=== PATIENT | female | born 1980 | race Caucasian/White ===

== ENCOUNTER → 2017-03-16 | Outpatient (CLI) | payer BC ==
[~2017-03-16] MED LIST: BCPILLS PO
== END | disposition home or self-care (01) ==
LOC: C.PAPS 13:25
PROVIDERS: ATTEND Obstetrics & Gynecology
DX: Z01.419 Encounter for gynecological examination (general) (routine) without abnormal findings (principal)

== ENCOUNTER 2017-09-12 22:32 | Emergency (ER) | payer BC ==
[~2017-09-12] VITALS: Ht 177.8 cm; Wt 78.7 kg
[2017-09-12 22:37] VITALS: TEMP 36.4; Ht 177.8 cm; Wt 78.7 kg
[2017-09-12] MEDS ORDERED: KETOROLAC TROMETHAMINE 30 MG/ML VIAL IV STA (23:38)
[2017-09-12] MEDS ORDERED: DiphenhydrAMINE HCL 50 MG/ML VIAL IV STA (23:38)
[2017-09-12] MEDS ORDERED: METOCLOPRAMIDE HCL INJ 5 MG/ML 2 ML VIAL IV STA (23:38)
[2017-09-12] MEDS ORDERED: BCPILLS PO (23:43)
[2017-09-13 00:30] VITALS: BP 120/74; PULSE 71; O2SAT 98
--- NOTE | 2017-09-13 06:59 | EMERGENCY ROOM VISIT NOTE ---
History First contact with patient: 23:22 Chief Complaint: HEADACHE Stated Complaint: MIGRAINE,VOMITING,NAUSEA History of Present Illness The patient is a 37 year old female who presents to the Emergency Room with complaints of nausea, vomiting and migraine for the past day. Patient just found out this morning that her dog has cancer. She started to cry and this triggered her migraine. Patient is new to the area. She has been seen multiple times the past for migraines. She is has a headache as throbbing, ranging in severity 7 attending at the frontal region similar to prior. Patient denies sudden onset headache, fever, chills, neck stiffness, weakness, vision problems, cold symptoms, chest pain, dyspnea. Review of Systems See HPI for pertinent positives & negatives. A total of 10 systems reviewed and were otherwise negative. Past Medical/Surgical History Migraine Social History Smoking Status: Never Smoker Drug Use: none Marital Status: Housing Status: lives with family Occupation Status: employed Current/Historical Medications Scheduled Control Pills ( Control Pills), 1 TAB PO DAILY Physical Exam Vital Signs Date Time Temp Pulse Resp B/P (MAP) Pulse Ox O2 Delivery O2 Flow Rate FiO2 09/13/17 00:30 71 16 120/74 98 Room Air 09/12/17 22:37 36.4 98 18 129/86 98 Room Air Physical Exam VITALS: Vitals are noted on the nurse's note and reviewed by myself. Vital signs stable. GENERAL: Pleasant female, in no acute distress, nondiaphoretic, well-developed well-nourished. SKIN: The skin was without rashes, erythema, edema, or bruising. There is no tenting of the skin. Capillary reflex less than 2 seconds. HEAD: Normocephalic atraumatic. EARS: External auditory canals clear, tympanic membranes pearly adams without erythema or effusion bilaterally. EYES: Pupils equal round and reactive to light and accommodation. Conjunctivae without injection, sclerae without icterus. Extraocular movements intact. NOSE: Patent, turbinates without inflammation or discharge. No sinus tenderness. MOUTH: Mucous membranes moist. Pharynx without erythema or exudate. Uvula midline. Airway patent. Tongue does not deviate. NECK: Supple without nuchal rigidity. No lymphadenopathy. No thyromegaly. Cervical spine is nontender. No JVD. HEART: Regular rate and rhythm without murmurs gallops or rubs. LUNGS: Clear to auscultation bilaterally without wheezes, rales or rhonchi. No dullness to percussion. No retractions or accessory muscle use. ABDOMEN: Positive bowel sounds x 4. Normal tympanic percussion. Soft, nontender, without masses or organomegaly. Velasquez sign negative. No guarding or rebound tenderness. MUSCULOSKELETAL: No muscle atrophy, erythema, or edema noted. NEURO: Patient was alert and oriented to person place and time. Normal sensation to light and sharp touch. No focal neurological deficits. Medical Decision & Procedures Medications Administered Medications (Trade) Dose Ordered Sig/Bertha Route Start Time Stop Time Status Last Admin Dose Admin Ketorolac Tromethamine (Toradol Inj) 30 mg NOW STAT IV 09/12/17 23:38 09/12/17 23:39 DC 09/12/17 23:52 30 MG Metoclopramide HCl (Reglan Inj) 10 mg NOW STAT IV 09/12/17 23:38 09/12/17 23:39 DC 09/12/17 23:51 10 MG Diphenhydramine HCl (Benadryl Inj) 25 mg NOW STAT IV 09/12/17 23:38 09/12/17 23:39 DC 09/12/17 23:51 25 MG ED Course Prior records/ancillary studies reviewed. Additional history obtained from family. Triage Nursing notes reviewed. The patient's history was concerning for headache. Differential diagnosis: Etiologies such as migraine headache, meningitis, sinusitis, CO exposure, ICH, SAH, infection, tumor, headache, sinus thrombosis, arterial dissection, as well as others were entertained. Physical examination findings: As above. Non-focal. ER treatment provided: Toradol, Reglan, Benadryl On reassessment the patient felt better. Diagnostics interpreted by me: Deferred This appears to be consistent with migraine. Patient was neurovascular and neurologically intact. She is well-appearing. She no signs of meningitis. She felt much better after being medicated as above. She is advised follow-up family care in a few days or here in the ER sooner for headache, fevers, worsening signs or symptoms or as needed. By the evaluation outlined above emergent etiologies such as meningitis, sinusitis, CO exposure, ICH, SAH, infection, temporal arteritis, tumor, sinus thrombosis, arterial dissection, as well as others were deemed relatively unlikely. The pt informed about the findings as listed above. All questions were answered and pleased with the treatment. Return instructions were outlined and the patient was discharged in stable condition. Referral: The patient was referred back to their primary care physician for follow-up in 2 to 3 days for a recheck of the current condition. Medical Decision As above Head Trauma GCS Score: 15 Medication Reconcilliation Current Medication List: was personally reviewed by me Blood Pressure Screening Patient's blood pressure: Normal blood pressure Impression Primary Impression: Migraine Departure Information Dispostion Home / Self-Care Condition GOOD Forms HOME CARE DOCUMENTATION FORM, Work Instructions, Return To Work: 1 day IMPORTANT VISIT INFORMATION Patient Instructions Headaches Migraine and Tension, My [facility] Additional Instructions DO NOT drive, drink alcohol, operate machinery, or perform dangerous activities today. You were given medications in the ER that can affect your ability to safely function or operate a vehicle. Rest today in a quiet, peaceful, dark environment and get a full 8-10 hrs of sleep tonight. Avoid loud noises, smoke/smoking, alcohol, bright lights, stress, or physical exertion today to minimize the chance the headache may return. Continue current medications. Ibuprofen(Motrin, Advil) may be used for fever or pain. Use 600mg every six hours as needed. Take with food. Avoid using more than 2400mg in a 24 hour period. Do not use 2400mg per day for more than three consecutive days without physician direction. Prolonged inappropriate use can lead to stomach upset or ulcers. (AND/OR) Acetaminophen(Tylenol) may be used for fever or pain. Use 1000mg every six hours as needed. Avoid using more than 3000mg in a 24 hour period. Return to the ER for passing out, worsening headache, vision problems, neck stiffness/pain, fevers, vomiting, worsening of your condition, or as needed. Follow up with your primary physician and/or a neurologist in 2-3 days for a recheck of your current condition. Work Instructions Return To Work: 1 day Problem Qualifiers Primary Impression: Migraine Migraine type: without aura Status migrainosus presence: without status migrainosus Intractability: not intractable Qualified Codes: G43.009 - Migraine without aura, not intractable, without status migrainosus
== END 2017-09-13 01:00 | disposition home or self-care (01) ==
LOC: C.EDB 22:34 → C.EDA 09-13 01:00
DX: G43.009 Migraine without aura, not intractable, without status migrainosus (principal)

== ENCOUNTER → 2017-09-28 | Outpatient (CLI) | payer BC ==
--- NOTE | 2017-09-28 15:33 | MAMMOGRAPHY REPORT ---
BILATERAL DIGITAL DIAGNOSTIC MAMMOGRAM TOMOSYNTHESIS WITH CAD AND TARGETED LEFT ULTRASOUND: 7 CLINICAL HISTORY: The patient reports that her provider felt a palpable lump in the left breast durin g a routine clinical exam. The patient also reports that she has intermittent pain in this region. TECHNIQUE: Breast tomosynthesis in addition to standard 2D mammography was performed. Current study was also evaluated with a Computer Aided Detection (CAD) system. Bilateral CC and MLO 2-D and tomosy nthesis images were obtained. COMPARISON: No prior exams were available for comparison. BREAST COMPOSITION: The tissue of both breasts is extremely dense, which lowers the sensitivity of m ammography. FINDINGS: A triangle marker mcleod the site of the palpable lump in the left upper outer quadrant. Th ere are no suspicious masses, calcifications, or areas of architectural distortion noted in either br east. Targeted ultrasound was performed of the area of the palpable finding pointed out by the patient, in the left breast at 1:00, centered around 8 cm from the nipple. Sonographically normal tissue is seen in this region, without evidence of a mass or other suspicious sonographic abnormality. A ridge of normal-appearing fibroglandular tissue is seen in this region, which may account for the palpable fin ding. IMPRESSION: ACR BI-RADS CATEGORY 2: BENIGN, TARGETED ULTRASOUND ACR BI-RADS CATEGORY 2: BENIGN No suspicious mammographic or sonographic abnormality at the site of the palpable left upper outer qu adrant lump pointed out by the patient. There is no mammographic or targeted sonographic evidence of malignancy. Recommend clinical follow-up for the left breast lump and pain; any decision to biopsy should be based on clinical grounds. Also recommend routine bilateral screening mammograms starting at the age of 40 unless otherwise clinically indicated. The patient has been verbally notified of the results. Approximately 10% of breast cancers are not detected with mammography. A negative mammographic report should not delay biopsy if a clinically suggestive mass is present. Charleen Reed M.D. /:09/28/2017 10:43:53 Deaf Interpreter: Fatimah Juárez, [facility] letter sent: Normal 1/2 BI-RADS Code: ACR BI-RADS Category 2: Benign Ultrasound BI-RADS: ACR BI-RADS Category 2: Benign
== END | disposition home or self-care (01) ==
LOC: C.MAMM 10:05
PROVIDERS: ATTEND Obstetrics & Gynecology
DX: N63.21 Unspecified lump in the left breast, upper outer quadrant (principal)

== ENCOUNTER 2017-10-17 10:17 | Emergency (ER) | payer BC, OTHER ==
[~2017-10-17] VITALS: Ht 180.3 cm; Wt 84.0 kg
[2017-10-17 10:24] VITALS: TEMP 36.9; Ht 180.3 cm; Wt 84.0 kg
[2017-10-17] MEDS ORDERED: KETOROLAC TROMETHAMINE 30 MG/ML VIAL IV STA (10:57)
[2017-10-17] MEDS ORDERED: ONDANSETRON INJ 2 MG/ML 2 ML VIAL IV STA (10:57)
[2017-10-17] MEDS ORDERED: SODIUM CHLORIDE 0.9% 1000ML 1,000 ML IV STA (10:57)
[2017-10-17] MEDS ORDERED: CYAN100073 PO (10:59)
[2017-10-17] MEDS ORDERED: RIZA5TAB10 PO (10:59)
[2017-10-17] MEDS ORDERED: ASPI-391 PO (10:59)
[2017-10-17] MEDS ORDERED: ONDA4TAB46 PO (10:59)
[2017-10-17] MEDS ORDERED: MAGN400T6 PO (10:59)
[2017-10-17] MEDS ORDERED: MULT-506 PO (10:59)
[2017-10-17] MEDS ORDERED: DROS1TAB24 PO (10:59)
[2017-10-17 11:18] LABS: HEMATOCRIT 44.7 % (37-47); HEMOGLOBIN 16.1 g/dL (12.0-16.0); MEAN CELL VOLUME 83.7 fL (80-100); MEAN CORPUSCULAR HEMOGLOBIN 30.1 pg (25-34); MEAN PLATELET VOLUME 10.5 fL (7.4-10.4); PLATELET COUNT 145 K/uL (130-400); RED CELL DISTRIBUTION WIDTH CV 12.6 % (11.5-14.5); RED CELL DISTRIBUTION WIDTH SD 38.1 fL (36.4-46.3); WHITE BLOOD COUNT 7.19 K/uL (4.8-10.8)
[2017-10-17 11:38] LABS: CALCIUM 8.6 mg/dl (8.5-10.1); CREATININE 0.83 mg/dl (0.60-1.20); POTASSIUM 4.1 mmol/L (3.5-5.1)
[2017-10-17 12:18] VITALS: BP 113/63; PULSE 71; O2SAT 99
--- NOTE | 2017-10-17 12:30 | EMERGENCY ROOM VISIT NOTE ---
ED Visit Note First contact with patient: 10:30 CHIEF COMPLAINT: Severe headache since last evening HISTORY OF PRESENT ILLNESS: Patient is a 37-year-old white female who presents to the emergency department accompanied by her for evaluation of a migraine headache that started last evening. Patient states that she had a mild headache 2 days ago which was alleviated by Maxalt. She does also report having several episodes of diarrhea that day. Yesterday during the day she was completely asymptomatic and felt well. She notes that yesterday evening around 9:00 after eating dinner, she developed a generalized, throbbing headache. She took Excedrin initially and went to bed. The headache persisted through the evening, woke her up a couple of times. She did take ibuprofen at one point, and at 4:00 this morning she took Maxalt 2 and Zofran. She states that she was able to go back to sleep slightly, but when she woke up for the day, the headache persisted, she became more nauseous and she actually began vomiting. She was seen at a [facility] and referred to the emergency department. She does note now that the headache has lessened and she thinks that that Maxalt may have helped slightly, but she still is nauseous. She describes a dull, generalized headache, with associated photophobia. She does state that this is very similar to her typical migraine phenomenon, which she has a long-standing history of. She has not seen neurology for some time, but did have a full neurologic workup when she was in [place]. She denies any fever, chills, neck pain or stiffness or recent upper respiratory or flulike illnesses. No difficulty with balance, speech or coordination, no weakness or numbness of the extremities. REVIEW OF SYSTEMS: Review of systems as per HPI. All other systems reviewed were negative. 10 systems reviewed. PMH: Electronic medical records are reviewed and summarized as above/below. See Problem List. SOCIAL HISTORY: Patient lives at home with her significant other. She is a professor. Nonsmoker, social EtOH. PHYSICAL EXAM: Vital Signs: Reviewed Nurse's notes. General Appearance: Patient is a pleasant, well-appearing 37-year-old white female who is awake and alert and laying in a darkened room in no acute distress. Eyes: Pupils equal round reactive to light extraocular muscles are intact, no proptosis, mild photophobia ENT: Oropharynx is clear, mucous membranes are moist, tympanic membranes are clear bilaterally, no sinus or dental tenderness Neck: Supple, no cervical lymphadenopathy, no meningismus Heart: Regular rate and rhythm, S1 and S2 Lungs: Clear to auscultation bilaterally, no wheezes Rales or rhonchi, no increased work of breathing Abdomen: Soft nontender nondistended. Normal active bowel sounds. No rebound. No guarding. Back: No midline tenderness to palpation. : No CVA tenderness to palpation. Skin: Warm, no diaphoresis, no rashes. Extremities: No cyanosis, clubbing, or edema Neurologic: Patient is awake alert, and oriented x 3. Cranial nerves 2-12 are grossly intact. Motor 5 out of 5 strength bilateral upper extremities and lower extremities. No gross sensory deficits. Reflexes are 2+ throughout. EMERGENCY DEPARTMENT COURSE: The patient was seen and evaluated as above. Her old records were reviewed. She was here in mid September for a migraine headache which was similar in nature. She is a [employer] and has been under some increased stress due to work and also notes that her dog recently. IV lock was initiated. CBC and BMP are unremarkable. Urine dip is clear and test is negative. The patient was medicated with a liter bolus of normal saline solution, Toradol 30 mg and Zofran 4 mg IV. She was observed in the emergency department, and on reassessment had near complete resolution of her symptoms. She felt much improved and was feeling well enough to be discharged home. She has Zofran and Maxalt, she was encouraged to continue these in addition to ecyx-xos-izmriyt medications, and was advised to follow-up with her primary care provider for further care and management. If her symptoms persist, she may need to be evaluated by neurology again. The patient rated her headache a 1/10 at discharge. Differential includes: acute intracranial bleed, meningitis, encephalitis, mass or mass effect, sinusitis, infection, migraine, tumor, headache, temporal arteritis and carbon monoxide exposure. Medication reconciliation: I attest that I have personally reviewed the patient' s current medication list. Blood pressure screening : Patient was found to have normal blood pressure on screening and does not require follow-up. Problem List Medical Problems: (1) Headache disorder Status: Chronic (2) Migraine Status: Resolved (3) Migraine Status: Resolved Current/Historical Medications Scheduled Control Pills ( Control Pills), 1 TAB PO DAILY Drospirenone-Ethinyl Estradiol (Janeen), 1 TAB PO DAILY Multivitamin (Multivitamin), 1 TAB PO DAILY Scheduled PRN Ondansetron Hcl (Zofran), 4 MG PO for Nausea Rizatriptan Benzoate (Maxalt), 5 MG PO prn PRN for Headache Miscellaneous Medications Jclekgo-Orslwupamssae-Rfpcsdly (Excedrin Extra Strength) Cyanocobalamin (B12) Magnesium Oxide (Mag-Ox), 400 MG PO Allergies Coded Allergies: No Known Allergies (Unverified , 09/12/17) Vital Signs Date Time Temp Pulse Resp B/P (MAP) Pulse Ox O2 Delivery O2 Flow Rate FiO2 10/17/17 12:18 71 16 113/63 99 10/17/17 10:24 36.9 99 16 108/70 100 Room Air Laboratory Results 10/17/17 11:05 10/17/17 11:05 Test 10/17/17 11:05 Red Blood Count 5.34 M/uL (4.2-5.4) Mean Corpuscular Volume 83.7 fL (80-100) Mean Corpuscular Hemoglobin 30.1 pg (25-34) Mean Corpuscular Hemoglobin Concent 36.0 g/dl (32-36) RDW Standard Deviation 38.1 fL (36.4-46.3) RDW Coefficient of Variation 12.6 % (11.5-14.5) Mean Platelet Volume 10.5 fL (7.4-10.4) Anion Gap 7.0 mmol/L (3-11) Est Creatinine Clear Calc Drug Dose 105.7 ml/min Estimated GFR () 105.9 Estimated GFR (Non- 91.4 BUN/Creatinine Ratio 16.2 (10-20) Calcium Level 8.6 mg/dl (8.5-10.1) Human Chorionic Gonadotropin, Qual NEG (NEG) Chemistry Specimen Hemolysis Medications Administered Medications (Trade) Dose Ordered Sig/Bertha Route Start Time Stop Time Status Last Admin Dose Admin Sodium Chloride 1,000 ml @ 999 mls/hr Q1H1M STAT IV 10/17/17 10:57 10/17/17 11:57 DC 10/17/17 11:08 999 MLS/HR Ketorolac Tromethamine (Toradol Inj) 30 mg NOW STAT IV 10/17/17 10:57 10/17/17 10:59 DC 10/17/17 11:09 30 MG Ondansetron HCl (Zofran Inj) 4 mg NOW STAT IV 10/17/17 10:57 10/17/17 10:59 DC 10/17/17 11:07 4 MG Departure Information Impression Primary Impression: Headache Referrals Guerline Dimas M.D. (PCP) Patient Instructions My [facility] Additional Instructions Rest today in a quiet, peaceful, dark environment and get a full 8-10 hrs of sleep tonight. Avoid loud noises, smoke/smoking, alcohol, bright lights, stress, or physical exertion today to minimize the chance the headache may return. Continue current medications. Ibuprofen(Motrin, Advil) may be used for fever or pain. Use 600mg every six hours as needed. Take with food. Avoid using more than 2400mg in a 24 hour period. Do not use 2400mg per day for more than three consecutive days without physician direction. Prolonged inappropriate use can lead to stomach upset or ulcers. (AND/OR) Acetaminophen(Tylenol) may be used for fever or pain. Use 1000mg every six hours as needed. Avoid using more than 3000mg in a 24 hour period. Return to the ER for passing out, worsening headache, vision problems, neck stiffness/pain, fevers, vomiting, worsening of your condition, or as needed. Follow up with your primary physician in 2-3 days for a recheck of your current condition.
[2017-10-17] MEDS ORDERED: IBUP-1050 PO (18:05)
[2017-10-17] MEDS ORDERED: PRED20TA PO (19:36)
[2017-10-17] MEDS ORDERED: PROM25TA9 PO (19:36)
== END 2017-10-17 12:44 | disposition home or self-care (01) ==
LOC: C.EDB 10:21 → C.EDC 12:44
DX: G43.709 Chronic migraine without aura, not intractable, without status migrainosus (principal); Z79.3 Long term (current) use of hormonal contraceptives

== ENCOUNTER 2017-10-17 16:48 | Emergency (ER) | payer OTHER ==
[~2017-10-17] VITALS: Ht 180.3 cm; Wt 86.5 kg
[~2017-10-17 16:48] MED LIST changes: +ASPI-391 PO; +CYAN100073 PO; +DROS1TAB24 PO; +MAGN400T6 PO; +MULT-506 PO; +ONDA4TAB46 PO; +RIZA5TAB10 PO
[2017-10-17 16:57] VITALS: Ht 180.3 cm; Wt 86.5 kg
[2017-10-17] MEDS ORDERED: DiphenhydrAMINE HCL 50 MG/ML VIAL IV STA (17:40)
[2017-10-17] MEDS ORDERED: METOCLOPRAMIDE HCL INJ 5 MG/ML 2 ML VIAL IV STA (17:40)
[2017-10-17] MEDS ORDERED: DEXAMETHASONE INJ 8 MG in SYRINGE 0 ML IV STA (17:40)
[2017-10-17] MEDS ORDERED: SODIUM CHLORIDE 0.9% 1000ML 1,000 ML IV STA (17:40)
[2017-10-17] MEDS ORDERED: IBUP-1050 PO (18:05)
[2017-10-17 18:44] VITALS: TEMP 37.6
[2017-10-17] MEDS ORDERED: PRED20TA PO (19:36)
[2017-10-17] MEDS ORDERED: PROM25TA9 PO (19:36)
--- NOTE | 2017-10-17 19:37 | EMERGENCY ROOM VISIT NOTE ---
ED Visit Note First contact with patient: 17:20 CHIEF COMPLAINT: Migraine headache HISTORY OF PRESENT ILLNESS: This 37-year-old female patient presented to the emergency department for the second time today complaining of ongoing migraine, headache, and nausea. The patient states she was feeling well earlier prior to discharge from the emergency department, then went home and was relaxing on the couch. The patient states she got hungry, and attempted to drink some water and eat some crackers, and immediately began experiencing very nauseated. She states her headache returned, and has not improved despite taking another 400 mg of ibuprofen. The patient states the migraine is similar to their typical migraines, however states they do not last this long normally. The patient has been under significant amount of stress, and she states last time she had a migraine like this was when her dog . There has been associated photophobia , phonophobia, nausea and vomiting. The patient denies fever or chills recently , and there is no weakness or numbness of the extremities. There is no difficulty with speech or vision, but the patient states she has been having increased tearing and watering of the right eye. No trauma to the head and no neck pain. The pain is severe, constant, and it is slowly increasing in severity. The patient rates the pain as throbbing and 5/10. This is not the worst headache of the life and is similar to previous migraines. Previous neurological workup has been normal. The patient states she was in college she experienced migraines, and did have a negative CT scan performed at that time. REVIEW OF SYSTEMS: A 10 system review of systems was performed with positives and pertinent negatives listed in the history of present illness. All other systems were reviewed and are negative. ALLERGIES: None MEDICATIONS: OCPs, Maxalt, Zofran, Excedrin, vitamin B2, magnesium PMH: Migraines SOCIAL HISTORY: The patient lives locally with family. She denies drug, alcohol , tobacco use. She states she does tend to use a significant amount of caffeine daily, and has had none today. PHYSICAL EXAM: Vital Signs: Reviewed Nurse's notes, vital signs stable. GENERAL : This is a 37 year old female, who appears in pain, but non toxic in appearance and in no acute distress. She is wearing sunglasses and sitting in a dark room which makes her feel more comfortable. MENTAL STATUS: Alert, oriented, and coherent. HEENT: Normocephalic. PERRLA. EOMI. Nares patent without nuchal rigidity. Tympanic membranes pearly adams without erythema or effusion bilaterally. Mucous membranes moist. NECK: Supple, no nuchal rigidity , nontender, no lymphadenopathy. HEART: Regular rhythm and normal rate without murmurs, ectopy, gallops, or rubs. LUNGS: Clear to auscultation bilaterally without wheezes, rales or rhonchi. No dullness to percussion. No accessory muscle use. No retractions. SKIN: Normal. NEUROLOGICAL: Pupils are round, equal and react to light. The optic fundi are normal and the discs are flat. The patient moves all extremities well and the gait is normal. EMERGENCY DEPARTMENT COURSE: I examined the patient. Previous medical records reviewed. Earlier today, the patient was given Toradol, Zofran, and 1 L normal saline solution. She did improve with these medications, however her migraine did return. Patient was given Reglan, Benadryl, Decadron, and nontender 1 L of fluids. The patient is feeling significantly better, and was able to tolerate PO fluids. I discussed options with the patient including performing a CT scan to evaluate for mass or ICH, and because she responded well to the medication, she would like to wait and follow up with her primary care provider to determine if this is necessary. The patient is feeling ready for discharge, and is agreeable with the plan for prednisone taper over the next few days. Discharge instructions reviewed, and the patient was discharged home in good condition. I attest that I have personally reviewed the patient's current medication list. Patient was found to have normal blood pressure on screening and does not require follow-up. The differential diagnosis includes acute intracranial bleed, meningitis, encephalitis, mass or mass effect, sinusitis, infection, tumor, headache, temporal arteritis and carbon monoxide exposure, and migraine. The patient was discharged home in stable condition with [] driving. DIAGNOSIS: Migraine headache Problem List Medical Problems: (1) Headache disorder Status: Chronic (2) Migraine Status: Resolved (3) Migraine Status: Resolved Current/Historical Medications Scheduled Cyanocobalamin (B12), 1,000 MCG PO DAILY Drospirenone-Ethinyl Estradiol (Janeen), 1 TAB PO DAILY Magnesium Oxide (Mag-Ox), 400 MG PO DAILY Multivitamin (Multivitamin), 1 TAB PO DAILY Prednisone (Prednisone), 0 PO DAILY Scheduled PRN Lxfttgl-Lefumqxhftebv-Oeuifblf (Excedrin Extra Strength), 1 TAB PO DAILY PRN for Migraine Ibuprofen (Advil), 400 MG PO DAILY PRN for Pain or Fever Ondansetron Hcl (Zofran), 4 MG PO Q8 PRN for Nausea Promethazine Hcl (Phenergan), 25 MG PO Q4H PRN for Nausea Rizatriptan Benzoate (Maxalt), 5 MG PO Q2H PRN for Headache Allergies Coded Allergies: No Known Allergies (Unverified , 10/17/17) Vital Signs Date Time Temp Pulse Resp B/P (MAP) Pulse Ox O2 Delivery O2 Flow Rate FiO2 10/17/17 18:44 37.6 80 18 98 Room Air 10/17/17 16:57 37.6 76 18 105/67 98 Room Air Medications Administered Medications (Trade) Dose Ordered Sig/Bertha Route Start Time Stop Time Status Last Admin Dose Admin Metoclopramide HCl (Reglan Inj) 10 mg NOW STAT IV 10/17/17 17:40 10/17/17 17:43 DC 10/17/17 17:50 10 MG Diphenhydramine HCl (Benadryl Inj) 50 mg NOW STAT IV 10/17/17 17:40 10/17/17 17:43 DC 10/17/17 17:50 50 MG Dexamethasone Sodium Phosphate 8 mg/Syringe 2 ml @ 1 mls/min NOW STAT IV 10/17/17 17:40 10/17/17 17:43 DC 10/17/17 17:54 1 MLS/MIN Sodium Chloride 1,000 ml @ 999 mls/hr Q1H1M STAT IV 10/17/17 17:40 10/17/17 18:40 DC 10/17/17 17:50 999 MLS/HR Departure Information Impression Primary Impression: Migraine Dispostion Home / Self-Care Condition GOOD Prescriptions Promethazine Hcl (Phenergan) 25 Mg Tab 25 MG PO Q4H Y for Nausea, #12 TAB Prov: Joy hTomas PA-C 10/17/17 Prednisone (Prednisone) 20 Mg Tab 0 PO DAILY, #18 TAB 3 DAILY FOR 3 DAYS, THEN 2 DAILY FOR 3 DAYS, THEN 1 DAILY FOR 3 DAYS. Prov: Joy Thomas PA-C 10/17/17 Referrals Guerline Dimas M.D. (PCP) Patient Instructions ED Headache Migraine, [facility] Additional Instructions DO NOT drive, drink alcohol, operate machinery, or perform dangerous activities today. You were given medications in the ER that can affect your ability to safely function or operate a vehicle. Rest today in a quiet, peaceful, dark environment and get a full 8-10 hrs of sleep tonight. Avoid loud noises, smoke/smoking, alcohol, bright lights, stress, or physical exertion today to minimize the chance the headache may return. Continue current medications as prescribed. You have been prescribed Phenergan to be used for any nausea or vomiting. This is to be used in place of Zofran. Take as prescribed. You have been prescribed Prednisone. This is a steroid which will help decrease your inflammation, redness, and itch. Take this medicine as prescribed. Take the ENTIRE 9 day course. It is best to take steroids early in the morning as PM dosing can affect your sleeping patterns. Do not take NSAIDs while taking prednisone. Ibuprofen(Motrin, Advil) may be used for fever or pain. Use 600mg every six hours as needed. Take with food. Avoid using more than 2400mg in a 24 hour period. Do not use 2400mg per day for more than three consecutive days without physician direction. Prolonged inappropriate use can lead to stomach upset or ulcers. Do not take this medication or other NSAIDs while taking prednisone. (AND/OR) Acetaminophen(Tylenol) may be used for fever or pain. Use 1000mg every six hours as needed. Avoid using more than 4000mg in a 24 hour period. Return to the ER for passing out, worsening headache, vision problems, neck stiffness/pain, fevers, vomiting, worsening of your condition, or as needed. Follow up with your primary physician in 2-3 days for a recheck of your current condition. Problem Qualifiers Primary Impression: Migraine Migraine type: without aura Status migrainosus presence: with status migrainosus Intractability: not intractable Qualified Codes: G43.001 - Migraine without aura, not intractable, with status migrainosus
[2017-10-17 20:39] VITALS: BP 106/55; PULSE 81; O2SAT 95
== END 2017-10-17 20:20 | disposition home or self-care (01) ==
LOC: C.EDB 16:49 → C.EDD 20:20
DX: G43.909 Migraine, unspecified, not intractable, without status migrainosus (principal); Z79.899 Other long term (current) drug therapy